=== PATIENT | male | born 1975 | race Caucasian/White ===

== ENCOUNTER 2024-10-25 18:50 | Emergency (ER) | payer SELFPAY ==
[2024-10-25] MEDS ORDERED: Aspirin Chewable 81 MG TAB ONE (19:12)
[2024-10-25] MEDS ORDERED: Diazepam 10 MG/2 ML SYRINGE ONE (19:15)
[2024-10-25 19:39] LABS: #Basophils 0.05 10x3/uL (0.0-0.2); #Eosinophils 0.13 10x3/uL (0.0-0.5); #Monocytes 0.66 10x3/uL (0.0-1.1); #Neutrophils 6.96 10x3/uL (1.5-8.4); %Basophils 0.6 % (0.0-2.0); %Eosinophils 1.5 % (0.0-6.0); %Lymphocytes 10.4 % (18.0-47.0); %Monocytes 7.6 % (0.0-10.0); %Neutrophils 79.7 % (40.0-75.0); Hemoglobin 13.1 g/dL (13.5-17.5); Mean Corpuscular HGB CONC 33.6 g/dL (32.0-36.0); Mean Corpuscular Hemoglobin 26.8 pg (27.0-33.0); Mean Corpuscular Volume 79.9 fL (81.2-95.1); Platelet Count 404 10x3/uL (150-450); RBC Distribution Width 14.2 % (11.5-14.5); Red Blood Cell (RBC) Count 4.88 10x6/uL (4.32-5.72); White Blood Cell (WBC) Count 8.7 10x3/uL (3.5-10.5)
[2024-10-25 19:54] LABS: Troponin I Less than 0.010 ng/mL (< 0.028)
[2024-10-25 19:56] LABS: ALT (SGPT) 37 U/L (8-55); AST (SGOT) 33 U/L (5-34); Albumin 3.3 g/dL (3.5-5.0); Alkaline Phosphatase 65 U/L (40-110); Anion Gap 16 mmol/L (10-20); BUN (Urea Nitrogen) 5 mg/dL (8.9-20.6); Bilirubin, Total 0.5 mg/dL (0.2-1.2); Calc. Creatinine Clearance 0 mL/min (70-130); Calcium 8.4 mg/dL (7.8-10.44); Carbon Dioxide 20 mmol/L (22-29); Chloride 96 mmol/L (98-107); Estimated GFR 97; Globulin 2.6 g/dL (2.4-3.5); Glucose 170 mg/dL (70-105); Protein, Total 5.9 g/dL (6.0-8.3); Sodium 128 mmol/L (136-145)
== END 2024-10-25 20:30 | disposition home or self-care (01) ==
LOC: CSHERS 18:50
DX: E87.1 Hypo-osmolality and hyponatremia (principal); F41.0 Panic disorder [episodic paroxysmal anxiety]; I10 Essential (primary) hypertension; F17.210 Nicotine dependence, cigarettes, uncomplicated
CPT/HCPCS: 36415; 71045; 80053; 84484; 85025; 93005; 96374; J3360